=== PATIENT | male | born 1975 | race Caucasian/White ===

== ENCOUNTER 2017-12-28 16:05 | Emergency (ER) | payer OTHER ==
[2017-12-28] MEDS ORDERED: ACETAMINOPHEN 500 MG TABLET PO ONE (16:23)
[2017-12-28 16:41] LABS: BASOPHILS % 0.7 (0.0-1.5); EOSINOPHILS % 1.7 % (0.0-6.8); MEAN CORPUSCULAR HEMOGLOBIN 29.4 pg (28.0-34.0); MEAN CORPUSCULAR VOLUME 86.5 fl (80.0-100.0); MONOCYTES % 6.6 % (0.0-11.0); NEUTROPHILS # 3.7 # k/uL (1.4-7.7)
[2017-12-28 16:55] LABS: eGFR (African) > 60; eGFR (Non-African) > 60
[2017-12-28] MEDS ORDERED: GUAIFENESIN/CODEINE 10 ML S/F LIQUID DOSE CUP PO ONE (18:09)
--- NOTE | 2017-12-28 18:14 | ED Physician Documentation ---
General Adult - HISTORIAN Historian: patient - HPI Stated Complaint: HTN at work/[employer] since 1100 today Chief Complaint: General Adult Further Comments: yes (42 year old male presents with complaint of headache and hypertension at work. 200/110 with wrist cuff. Patient report visual "distrubance" and "blurry vision". Is not wearing his contacts.) - ROS CONST: no problems EYES/ENT: nasal congestion. denies: problems with vision, sore throat, nasal drainage CVS/RESP: cough. denies: chest pain, shortness of breath GI/: none MS/SKIN/LYMPH: none NEURO/PSYCH: anxiety - PAST HX Past History: other (insomnia, depression, anxiety) Allergies/Adverse Reactions: Allergies Allergy/AdvReac Type Severity Reaction Status Date / Time No Known Drug Allergies Allergy Verified 12/28/17 18:22 Home Medications: Ambulatory Orders Medication Instructions Recorded Benzonatate [Tessalon Perles] 200 mg PO TID PRN #30 capsule 12/28/17 - SOCIAL HX Smoking History: non-smoker - FAMILY HX Family History: No - VITAL SIGNS Vital Signs: Vital Signs Temp Pulse Resp BP Pulse Ox 100 F H 92 H 14 161/81 96 12/28/17 16:05 12/28/17 16:05 12/28/17 16:05 12/28/17 16:05 12/28/17 16:05 - REVIEWED ASSESSMENTS Nursing Assessment Reviewed: Yes Vitals Reviewed: Yes Progress - Progress Progress: Orthostatics - negative. Visual aquity assessed Encouraged patient to rest, decrease anxiety stressors. Has appointment with Dr Acevedo on Tuesday. Explained visual changed could be side effect of trazadone. Requested cough medication. No coughing noted in Er, Rx for prn tessalon. ED Results Lab/Radiology - Lab Results Lab Results: Lab Results 12/28/17 12/28/17 16:35 16:35 WBC 4.70 K/ul K/ul (4.00-12.00) RBC 4.55 M/ul M/ul (3.90-5.20) Hgb 13.4 g/dL g/dL (12.0-18.0) Hct 39.4 % % (37.0-53.0) MCV 86.5 fl fl (80.0-100.0) MCH 29.4 pg pg (28.0-34.0) MCHC 33.9 g/dL g/dL (30.0-36.0) RDW 13.6 % % (11.3-14.3) Plt Count 164 K/mm3 K/mm3 (130-400) Neut % (Auto) 78.7 % % (39.0-79.0) Lymph % (Auto) 11.0 % L % (16.0-50.0) [place] % (Auto) 6.6 % % (0.0-11.0) Eos % (Auto) 1.7 % % (0.0-6.8) Baso % (Auto) 0.7 (0.0-1.5) Neut # (Auto) 3.7 # k/uL # k/uL (1.4-7.7) Lymph # (Auto) 0.5 # k/uL L # k/uL (0.6-4.0) [place] # (Auto) 0.3 # k/uL # k/uL (0.0-0.9) Eos # (Auto) 0.1 # k/uL # k/uL (0.0-0.6) Baso # (Auto) 0.0 # k/uL # k/uL (0.0-0.5) Reactive Lymphs % 1.2 % % (0.0-5.0) Reactive Lymphs # 0.1 # k/uL # k/uL (0.0-0.8) Sodium 142 mmol/L mmol/L (136-145) Potassium 3.7 mmol/L mmol/L (3.5-5.1) Chloride 103 mmol/L mmol/L (98-107) Carbon Dioxide 26 mmol/L mmol/L (22-30) BUN 11 mg/dL mg/dL (9-20) Creatinine 0.90 mg/dL mg/dL (0.66-1.25) Estimated Creat Clear 153 Est GFR ( Amer) > 60 (60 - ) Est GFR (Non-Af Amer) > 60 (60 - ) Glucose 111 mg/dL H mg/dL (74-106) Calcium 9.0 mg/dL mg/dL (8.4-10.2) Total Bilirubin 0.7 mg/dL mg/dL (0.2-1.3) AST 52 U/L H U/L (15-46) ALT 76 U/L H U/L (13-69) Alkaline Phosphatase 92 U/L U/L (38-126) Total Protein 7.0 g/dL g/dL (6.3-8.2) Albumin 3.9 g/dL g/dL (3.5-5.0) - Orders Orders: ED Orders Category Date Time Status Eye Acuity 1T Care 12/28/17 17:03 Active Orthostatics 1T Care 12/28/17 17:03 Active CBC/PLATELET/DIFF Stat Lab 12/28/17 16:35 Completed CMP Stat Lab 12/28/17 16:35 Completed RESPIRATORY VIRAL PROFILE Stat Lab 12/28/17 Ordered UA W/MICRO IF INDICATED Stat Lab 12/28/17 16:23 Ordered Acetaminophen [Tylenol Extra Strength] Med 12/28/17 16:23 Discontinued 1,000 mg PO NOW ONE Guaifenesin/Codeine Phosphate [Robitussin AC] Med 12/28/17 18:09 Once 10 ml PO NOW ONE General Adult Physical Exam - PHYSICAL EXAM GENERAL APPEARANCE: mild distress EENT: eye inspection normal, ENT inspection normal, pharynx normal, no signs of dehydration, LEONARDO, no nystagmus, TM's nml RESPIRATORY: no resp distress, chest non-tender, breath sounds normal CVS: reg rate & rhythm, heart sounds normal, equal pulses, no murmur, no gallop , PMI nml, no JVD, no friction rub, 24 ABDOMEN: soft, no organomegaly, normal bowel sounds, no abdominal bruit, no distension BACK: normal inspection, no CVA tenderness SKIN: normal color, warm/dry, NR, INT, PAL, DR EXTREMITIES: non-tender, normal range of motion, no evidence of injury, no edema , J, SLIP TENDER NEURO: oriented X3, CN's nml as tested, motor nml, sensation nml, mood/affect nml Discharge Clincal Impression: Anxiety Prescriptions: Benzonatate [Tessalon Perles] 200 mg PO TID PRN #30 capsule PRN Reason: Cough Referrals: Mayra Acevedo MD [STAFF PHYSICIAN] - 2 Days Additional Instructions: Rest Tylenol or ibuprofen as needed for headache. Follow up with Dr Acevedo on Tuesday - discuss your daily medications. Continue all your medications as prescribed. Condition: Stable Disposition: 01 HOME, SELF-CARE Decision to Admit: NO Decision Time: 18:13
[2017-12-28 18:37] VITALS: BP 140/81
[2017-12-29 06:08] LABS: APPEARANCE,URINE CLEAR (CLEAR); COLOR,URINE YELLOW (YELLOW); OCCULT BLOOD,URINE NEGATIVE (NEGATIVE); UROBILINOGEN URINE 0.2 Eu (0.2-1.0)
[2017-12-30 09:31] LABS: ADENOVIRUS DNA NEGATIVE (NEGATIVE); SOURCE: SWAB IN VTM
== END 2017-12-28 18:25 | disposition home or self-care (01) ==
LOC: ED 16:05
DX: F41.9 Anxiety disorder, unspecified (principal); R51 Headache; I10 Essential (primary) hypertension
CPT/HCPCS: 80053; 81002; 85025; 87486; 87581; 87633; 87798; 99283